=== PATIENT | female | born 1930 | race Caucasian/White ===

== ENCOUNTER 2016-11-02 07:52 | Day surgery (SDC) | payer MEDICARE, BC ==
[~2016-11-02] VITALS: Ht 152.4 cm; Wt 56.3 kg
[~2016-11-02 07:52] MED LIST: EZET1TAB40 PO; amlodipine PO; micardis PO
[2016-11-02 08:25] VITALS: Ht 152.4 cm; Wt 56.3 kg
[2016-11-02] MEDS ORDERED: ATOR40TA68 PO (08:34)
[2016-11-02 09:08] VITALS: BP 115/67; PULSE 60; RESP 22
[2016-11-02] MEDS ORDERED: LIDOCAINE 2% (SDV) 5 ML INJ ONE (09:23)
[2016-11-02] MEDS ORDERED: PROPOFOL 20 ML ONE (09:23)
--- NOTE | 2016-11-02 09:50 | OPPN ---
Date/Time of Note Date/Time of Note DATE: 11/02/16 TIME: 09:46 Operative Report Preoperative Diagnosis Dysphagia Postoperative Diagnosis Hiatal hernia and reflux esophagitis Small ring in the upper part of the esophagus Gastritis with erosions Small submucosal mass on the gastric antrum Operation/Procedure Performed Esophagogastroduodenoscopy and biopsy Provider: RAMANA PALOMINO MD Anesthesia Type: MAC Estimated blood loss: none Transfusion Required: no Specimens Gastric mucosal biopsy Biopsy of the submucosal mass Grafts/Implants: none Complications: no RAMANA PALOMINO MD Nov 02, 2016 09:50
[2016-11-02 10:05] VITALS: BP 128/61; RESP 12
--- NOTE | 2016-11-02 10:42 | GILP ---
DATE OF PROCEDURE: 11/02/2016 PROCEDURE PERFORMED: Esophagogastroduodenoscopy and biopsy. SURGEON: Carmelo Arenas MD. PREOPERATIVE DIAGNOSIS: Dysphagia. POSTOPERATIVE DIAGNOSIS: 1. Small ring in the upper part of the esophagus with a ectopic gastric mucosa. 2. Hiatal hernia and reflux esophagitis. 3. Gastritis with erosions. 4. Gastric mucosal biopsies were taken for Helicobacter pylori test. 5. Small sub-mucosal mass on the gastric antrum and biopsies were taken for histopathology. INDICATION: Ms. Ghada Mcclellan is an 86-year-old female patient who had a history of dysphagia, so the patient was scheduled for endoscopic examination for further evaluation. The procedure and possible complications were well explained to the patient. She understood and consented to the procedure. DESCRIPTION OF PROCEDURE: Under the influence of anesthesia, the gastroscope was carefully introduced into the esophagus. Under direct vision, it was advanced to the stomach, into the pylorus, into the duodenal bulb, and descending duodenum. FINDINGS: Esophagus: The patient was noted to have a patch of gastric mucosa in the upper endoscopy esophagus and a small ring in the area. There was no significant narrowing of the esophageal lumen. The patient was noted to have reflux esophagitis with erosions. She had a hiatal hernia. Stomach, she had gastritis with erosions. Gastric mucosal biopsies were taken for Helicobacter pylori test. She also had a small sub- mucosal mass on the gastric antrum and biopsies were taken. The duodenum was normal. She tolerated the procedure very well. There were no complication from the procedure. At the end of procedure, she was awake with stable vital signs and she was discharged home in the care of her family. IMPRESSION: Please see postop diagnoses. PLAN: 1. Dexilant 60 mg p.o. q.a.m. 2. Await histopathology reports. 3. Barium swallow for further evaluation. 4. If there is significant narrowing of the esophagus in barium will consider endoscopy and balloon dilatation. Dictated By: MD JERRY Rosas/jules/kamila /Document#: [id number]
--- NOTE | 2016-11-07 05:36 | CONS ---
PATIENT NAME: ANDERSON CHO DATE OF ADMISSION: 11/02/2016 DATE OF CONSULTATION: HISTORY OF PRESENT ILLNESS: She is an 86-year-old female patient who was referred to me for further evaluation of dysphagia with a history of food sticking up in the esophagus. She has a history of gastritis and gastroesophageal reflux disease. There is no past history of esophageal stricture or neoplasm. Her appetite has been good, and she is not losing any weight. She is not taking any nonsteroidal anti-inflammatory agents. No history of gallstones or liver disease. She has a history of colon polyps. She denies any change in the bowel habits or rectal bleeding. She is hypertensive, not diabetic. No heart disease or lung problems or kidney disease, has hyperlipidemia, has history of arthritis and status post right hip replacement surgery. SOCIAL HISTORY: Nonsmoker. Does not abuse alcohol. FAMILY HISTORY: Colon cancer. ALLERGIES: ASPIRIN, PENICILLIN, SULFA, AND IODINE. MEDICATION: 1. Amlodipine. 2. Micardis. 3. Atorvastatin. PHYSICAL EXAMINATION: VITALS: She is 5 feet tall and weighs 118 pounds. Blood pressure 150/80. Normal heart sounds. LUNGS: Clear. ABDOMEN: Soft. No masses. Normal bowel sounds. NEUROLOGICAL: Normal neurological exam. IMPRESSION: 1. Dysphagia with a history of food sticking up in the esophagus. 2. Gastroesophageal reflux disease. 3. History of colon polyps. 4. Family history of colon cancer. 5. Hypertension. 6. Hyperlipidemia. 7. Arthritis. 8. Status post right hip replacement surgery. 9. Status post hysterectomy. 10. History of allergy to aspirin, penicillin, sulfa, and iodine. PLAN: Endoscopy and possible dilatation. Because of the patient's age, she needs monitored anesthesia care. The procedure and possible complications were well explained to the patient. She understands and consents to the procedure. Follow up with the primary MD for further management of hypertension. . Dictated By: MD JERRY Rosas/jules/brittnee /Document#: [id number]
== END 2016-11-02 17:15 | disposition home or self-care (01) ==
LOC: GIL 07:52
PROVIDERS: ATTEND Internal Medicine Gastroenterology
DX: K44.9 Diaphragmatic hernia without obstruction or gangrene (principal); K29.60 Other gastritis without bleeding; K21.0 Gastro-esophageal reflux disease with esophagitis; I10 Essential (primary) hypertension; E78.5 Hyperlipidemia, unspecified; Z88.6 Allergy status to analgesic agent; Z88.0 Allergy status to penicillin; Z88.2 Allergy status to sulfonamides
CPT/HCPCS: 87081; 88305; 88312

== ENCOUNTER → 2016-11-09 | Outpatient (CLI) | payer MEDICARE, BC ==
[~2016-11-09] MED LIST changes: +ATOR40TA68 PO; +BARIUM SULFATE 135 ML (E-Z HD) PO ONE; -EZET1TAB40 PO
--- NOTE | 2016-11-09 14:04 | RADRPT ---
PROCEDURE: Radiological examination of the esophagus CLINICAL INDICATION: Dysphagia TECHNIQUE: The patient was NPO. The patient was given 8 ounces of barium with CO2 crystals orally via a cup. Subsequently videofluoroscopy was performed was performed. Routine esophageal images we re obtained. Fluoroscopy time: 24 seconds COMPARISON: No comparison study available. FINDINGS: Unremarkable oral phase of swallowing. Normal bolus formation and control. Normal lingular movement and propulsion. Normal bolus transfer. No spillage into pharynx. Unremarkable pharyngeal phase of swallowing. Normal swallow reflex. Normal pharyngeal contraction. N o laryngeal penetration identified. No aspiration identified. No pharyngeal residual identified. There is prominent narrowing of the mid esophagus at the level of the aortic arch, likely due to ane urysmal dilatation of the thoracic aorta. No hiatal hernia identified. No evidence of gastroesophage al reflux. No evidence of esophagitis. No esophageal mass identified. Limited views of the stomach are unremarkable. 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 A CTA study of the chest is recommended for further evaluation. Physician Jarod Date Time Electronically viewed and signed by Physician Jarod on 11/09/2016 14:03 /
== END | disposition home or self-care (01) ==
LOC: RAD 09:01
PROVIDERS: ATTEND Internal Medicine Gastroenterology
DX: R13.10 Dysphagia, unspecified (principal)
CPT/HCPCS: 74230

== ENCOUNTER → 2016-11-17 | Outpatient (CLI) | payer MEDICARE, BC ==
[~2016-11-17] MED LIST changes: -BARIUM SULFATE 135 ML (E-Z HD) PO ONE
== END | disposition home or self-care (01) ==
LOC: C/S 12:44
PROVIDERS: ATTEND Internal Medicine Gastroenterology
DX: R13.10 Dysphagia, unspecified (principal)